=== PATIENT | male | born 1955 | race Caucasian/White ===

== ENCOUNTER → 2017-02-04 10:53 | Outpatient (CLI) | payer BC | END | disposition home or self-care (01) | LOC: D.CT 10:30 | DX: R31.9 Hematuria, unspecified (principal); R10.9 Unspecified abdominal pain ==

== ENCOUNTER → 2017-02-04 12:18 | Day surgery (SDC) | payer BC ==
[2017-02-04 13:16] LABS: BASOPHILS 0.2 % (0-2); EOSINOPHILS 0.4 % (0-7); HEMATOCRIT 43.9 % (42.0-54.0); HEMOGLOBIN 15.1 g/dL (13.5-17.5); IMMATURE GRANULOCYTES 0.3 % (0-5); LYMPHOCYTES 13.3 % (15-50); MCHC 34.4 g/dL (31.0-37.0); MCV 87.3 fL (80.0-100.0); MEAN PLATELET VOLUME 9.4 fL (7.4-10.4); MONOCYTES 14.3 % (2-11); NEUTROPHILS 71.5 % (40-80); PLATELET COUNT 138 10x3/uL (130-400); RBC 5.03 10x6/uL (4.20-6.10); RDW 14.1 % (11.5-14.5); WBC 11.3 10x3/uL (4.8-10.8)
[2017-02-04 13:26] LABS: APTT 26.9 SECONDS (22.8-39.4)
[2017-02-04 13:27] LABS: INR 1.01 (0.85-1.17); PROTIME 13.2 SECONDS (11.6-15.0)
[2017-02-04 13:34] LABS: ALBUMIN 3.7 g/dL (3.4-5.0); ANION GAP 11.7 mmol/L (8-16); BILIRUBIN - TOTAL 1.45 mg/dL (0.2-1.3); CALCIUM 8.9 mg/dL (8.5-10.1); CARBON DIOXIDE 28.3 mmol/L (21.0-32.0); CREATININE - SERUM 2.2 mg/dL (0.6-1.3); PROTEIN - SERUM 7.8 g/dL (6.4-8.2)
[2017-02-04 13:56] LABS: APPEARANCE HAZY (CLEAR); BILIRUBIN NEGATIVE (NEGATIVE); COLOR YELLOW (YELLOW); GLUCOSE NEGATIVE (NEGATIVE); KETONE NEGATIVE (NEGATIVE); LEUKOCYTE ESTERASE TRACE (NEGATIVE); NITRITE NEGATIVE (NEGATIVE); PROTEIN 1+ mg/dL (NEGATIVE); SPECIFIC GRAVITY 1.025 (1.005-1.020); UROBILINOGEN NORMAL (NORMAL)
[2017-02-04 13:57] LABS: BACTERIA MODERATE /hpf (NONE SEEN); GRANULAR CAST 0-5 /lpf (NONE SEEN); HYALINE CAST 0-5 /lpf (NONE SEEN); MUCUS <1+ /lpf (NONE SEEN); RED CELLS - URINE 0-5 /hpf (0-5); WHITE CELLS - URINE 0-5 /hpf (0-5)
--- NOTE | 2017-02-04 15:51 | NUR ---
1525- PT TO ROOM IN SUPINE POSITION. BYPASSED RECOVERY. SLIGHT SHIVERING, WARM BLANKETS PROVIDED. ORAL TEMP @ 98.6F. VSS. AT BEDSIDE. 1540- PT UP OOB TO BR WITH X1 ASSIST. VOIDED WITHOUT DIFFICULTY, BLOOD TINGED. STRING FROM STENT VISIBLE. 1545- IV D/C'D, PT TOLERATED. CATHETER INTACT. FULL LIQUIDS OFFERED. WILL CONTINUE TO MONITOR.
--- NOTE | 2017-02-04 16:44 | NUR ---
1600- FULL LIQUIDS TOLERATED. 1615- DISCHARGE INSTRUCTIONS COMPLETED. PT/ VERBALIZED UNDERSTANDING. PAPERWORK SIGNED. 1630- PT DISCHARGED VIA WHEELCHAIR WITH .
--- NOTE | 2017-02-05 08:58 | OP ---
PATIENT NAME: IVONNE PARRA MEDICAL RECORD: [id number] :51 LOCATION:[facility] ADMISSION DATE: SURGEON: EMMA SAGE MD DATE OF OPERATION: 02/04/2017 SURGEON: Emma Sage MD ANESTHESIA: TIVA by Juan Diego Hedrick CRNA. PREOPERATIVE DIAGNOSIS: Left distal ureteral 5-mm stone. POSTOPERATIVE DIAGNOSIS: Left distal ureteral 5-mm stone. FINDINGS: Radiolucent left distal ureteral stone. Obstructive BPH with bilateral lobe obstruction. Heavily trabeculated bladder, no bladder tumors, single ureteral orifices bilaterally. PROCEDURE: Cystoscopy, left retrograde pyelogram, left ureteroscopy and stone extraction, left ureteral stent insertion 6-Cuban x 26 cm with string attached. SPECIMENS: Left ureteral stone. COMPLICATIONS: None. BLOOD LOSS: None. CLINICAL HISTORY: This is a 61-year-old male, who has not had a prior history of kidney stones. 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 For the past 4 days, he has been complaining of left-sided flank pain radiating to the left lower quadrant with nausea and vomiting. He has not been able to keep any food down. He did not have any fevers or chills. He went to his family doctor, Dr. Bear, who performed a CT scan of the abdomen and pelvis. CT scan showed left hydroureteronephrosis due to an obstructing distal ureteral 5-mm stone. Dr. Bear then called me this morning and I asked for the patient to be transferred to the Emergency Room and from there, we will bring him to the operating room to have the stone removed. He is not allergic to any medications and he was given Ancef pulmonology technician to the OR. DESCRIPTION OF PROCEDURE: The patient was given IV sedation. He was then placed in the dorsal lithotomy position and prepped and draped. We used a 21-Cuban cystoscope with 30-degree lens. The findings are as outlined above. The prostate is obstructive. He a tall bladder neck also. Going into the bladder, there was a heavily trabeculated bladder with cellules. No bladder tumors were seen. He has single ureteral orifices on each side. Fluoroscopy did not reveal any obvious stone. When we tried to enter into the left ureter with the guidewire, it ran up against resistance from the stone. It could not be advanced. I therefore converted to the open-ended ureteral catheter and we injected diluted contrast for retrograde pyelogram. This showed us the hydroureteronephrosis. Also, when we removed the ureteral catheter, we could see from the contained color of dye exactly where the stone was located. The ureteral catheter was then placed up against the stone again and then a Glidewire was inserted passed the stone into the renal pelvis. Over the Glidewire, once we had removed the open-ended ureteral catheter, we placed the ureteral dilation balloon. This is a 21-Cuban x 4 cm long balloon. The balloon was inflated and the left ureteral orifice to 18 atmospheres of pressure OPERATIVE REPORT [id number] FIDEL,IVONNE for a few seconds and then the balloon was deflated and completely removed. At this point, we took out the lens from the cystoscope, leaving the sheath and the Glidewire in place. The cystoscope sheath is there to protect the urethra from injury by the ureteroscope. The semi-rigid ureteroscope was placed alongside the guidewire. We identified the stone in the distal ureter. This was trapped within the wires of a 0-tip 4 wire basket. The stone was removed as a unit with the scope. The stone specimen was then sent to pathology for stone analysis. We backloaded the wire onto the cystoscope and over the wire, we inserted the 6-Cuban x 26 cm long ureteral stent. Once the stent was in correct position, the wire was entirely withdrawn. The distal end of the stent was pushed into the bladder using the pusher. The string on the distal end of the stent is maintained. We drained the bladder through the cystoscope sheath. The scope sheath was then completely removed. The string hangs out of the urethral meatus. It was tied to itself in a knot and then cut shorter. The patient will be going home today. For his BPH, I have given him a prescription of Tamsulosin 0.4 mg p.o. q.h.s., 90 days with 3 refills. 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 I will see him in about 1 month's time to review the stone analysis with him. TRANSINT:[id number] Voice Confirmation ID: [id number] DOCUMENT ID: [id number] EMMA SAGE MD at [id number] CC: [id number] DICTATION DATE: 02/04/17 1539 JAVA SOFTWARE: 02/04/17 2030 [facility] 02/04/17 [place] [id number] [place] [id number]
[2017-02-18 09:16] LABS: CALCULI - CA OXALATE MONOHYDR 95 % (()); CALCULI - COLOR Brown (()); CALCULI - SIZE 4x3x3 mm (())
== END | disposition home or self-care (01) ==
LOC: D.ER 12:18 → D.OPS 12:18 → EDSTATUS 16:52
PROVIDERS: Nurse Practitioner Family; Urology
DX: N20.0 Calculus of kidney (principal); F17.200 Nicotine dependence, unspecified, uncomplicated; I48.91 Unspecified atrial fibrillation; N40.0 Benign prostatic hyperplasia without lower urinary tract symptoms; R10.9 Unspecified abdominal pain; Z01.812 Encounter for preprocedural laboratory examination